=== PATIENT | female | born 1965 | race Caucasian/White ===

== ENCOUNTER → 2016-09-05 | Day surgery (SDC) | payer BC ==
[2016-08-27 11:45] VITALS: BMI 35.0
[~2016-09-05] VITALS: Ht 167.6 cm; Wt 97.7 kg
[~2016-09-05] MED LIST: DOXY50CA26 PO; LEVOIUD; SODIUM CHLORIDE 0.9% 500ML 500 ML IV ONE; TRIATAB3 PO; VOLTAREN PO; [UNRECOGNIZED DRUG - OTHER] PO; [UNRECOGNIZED DRUG - REMARK] PO
[2016-09-05 12:47] VITALS: Ht 167.6 cm; Wt 97.7 kg
--- NOTE | 2016-09-05 13:34 | Endo History and Physical ---
History & Physical Date of Service: Sep 05, 2016. Chief Complaint: SCREENING Referring Physician: DR Dakotah WHITE History of Present Illness 50 yo CF who presents for screening colonoscopy. Past Surgical History Hx Cardiac Surgery: No Hx Internal Defibrillator: No Hx Pacemaker: No Hx Abdominal Surgery: No Hx of Implantable Prosthesis: No Hx Post-Op Nausea and Vomiting: No Hx Cancer Surgery: No Hx Thoracic Surgery: No Hx Orthopedic: No Hx Urinary Tract Surgery: No Family History None Social History Smoking Status: Never Smoker Hx Substance Use: No Hx Alcohol Use: Yes (OCCASIONAL) Allergies Coded Allergies: Adhesives (Verified Allergy, Unknown, REDNESS, 09/05/16) NO KNOWN DRUG ALLERGIES (Verified Allergy, Unknown, ., 08/27/16) Current Medications Reported Home Medications Medications Dose Route/Sig Max Daily Dose Days Date Category Mirena (Levonorgestrel (Iud)) 20 Mcg/24 Hr Iud 1 CONTINOUS 08/27/16 Reported [Inflammation Supp] 1 Tab PO TID 08/27/16 Reported [Ac-Carbomide] 1 Tab PO TID 08/27/16 Reported Doxycycline (Doxycycline (Monohydrate)) 50 Mg Cap 1 Tab PO QAM 08/27/16 Reported [Voltaren] Unknown Strength Unknown Dose PO BID 08/27/16 Reported Triamterene/Hctz 37.5-25MG (Triamterene/HCTZ) 1 Tab Tab 1 Tab PO QAM 08/27/16 Reported Vital Signs Weight (Kilograms): 97.73 Height (Feet): 5 Height (Inches): 6 Date Time Temp Pulse Resp B/P Pulse Ox O2 Delivery O2 Flow Rate FiO2 09/05/16 12:57 36.7 85 16 157/89 98 Room Air Physical Exam General Appearance: WD/WN, no apparent distress Respiratory/Chest: Auscultation: breath sounds normal Cardiovascular: Heart Auscultation: RRR Abdomen: Bowel Sounds: normal Inspection & Palpation: soft, non-distended, no tenderness, guarding & rebound Assessment and Plan Assessment: 50 yo CF who presents for screening colonoscopy. Plan: Proceed with colonoscopy.
--- NOTE | 2016-09-05 14:01 | GI REPORT ---
Procedure Date: 09/05/2016 1:35 PM Procedure: Colonoscopy Indications: Screening for colorectal malignant neoplasm Medicines: Monitored Anesthesia Care Complications: No immediate complications. Estimated Blood Loss: Estimated blood loss: none. Procedure: Pre-Anesthesia Assessment: - Prior to the procedure, a History and Physical was performed, and patient medications and allergies were reviewed. The patient's tolerance of previous anesthesia was also reviewed. The risks and benefits of the procedure and the sedation options and risks were discussed with the patient. All questions were answered, and informed consent was obtained. Prior Anticoagulants: The patient has taken no previous anticoagulant or antiplatelet agents. ASA Grade Assessment: II - A patient with mild systemic disease. After reviewing the risks and benefits, the patient was deemed in satisfactory condition to undergo the procedure. After I obtained informed consent, the scope was passed under direct vision. Throughout the procedure, the patient's blood pressure, pulse, and oxygen saturations were monitored continuously. The Scope was introduced through the anus and advanced to the terminal ileum. The colonoscopy was performed without difficulty. The patient tolerated the procedure well. The quality of the bowel preparation was good. The terminal ileum, ileocecal valve, appendiceal orifice, and rectum were photographed. Findings: Non-bleeding internal hemorrhoids were found during retroflexion. The hemorrhoids were small. The exam was otherwise without abnormality. Impression: - Non-bleeding internal hemorrhoids. - The examination was otherwise normal. - No specimens collected. Recommendation: - Resume previous diet. - Continue present medications. - Repeat colonoscopy in 10 years for surveillance. - Return to primary care physician as previously scheduled. Sam Marte DO 09/05/2016 2:01:03 PM This report has been signed electronically. Note Initiated On: 09/05/2016 1:35 PM
--- NOTE | 2016-09-05 14:03 | Discharge Instructions ---
Endoscopy Patient Instructions Date / Procedure(s) Performed Sep 05, 2016. Colonoscopy Allergy Information Coded Allergies: Adhesives (Verified Allergy, Unknown, REDNESS, 09/05/16) NO KNOWN DRUG ALLERGIES (Verified Allergy, Unknown, ., 08/27/16) Discharge Date / Findings Sep 05, 2016. Internal hemorrhoids Medication Instructions OK to resume all medications today as prescribed. Reported Home Medications Medications Dose Route/Sig Max Daily Dose Days Date Category Mirena (Levonorgestrel (Iud)) 20 Mcg/24 Hr Iud 1 CONTINOUS 08/27/16 Reported [Inflammation Supp] 1 Tab PO TID 08/27/16 Reported [Ac-Carbomide] 1 Tab PO TID 08/27/16 Reported Doxycycline (Doxycycline (Monohydrate)) 50 Mg Cap 1 Tab PO QAM 08/27/16 Reported [Voltaren] Unknown Strength Unknown Dose PO BID 08/27/16 Reported Triamterene/Hctz 37.5-25MG (Triamterene/HCTZ) 1 Tab Tab 1 Tab PO QAM 08/27/16 Reported Provider Instructions Activity Restrictions - No exercising or heavy lifting for 24 hours. - Do not drink alcohol the day of the procedure. - Do not drive a car or operate machinery until the day after the procedure. - Do not make any important decisions or sign important papers in 24 hours after the procedure. Following Day: - Return to full activity which may include returning to work/school. Diet Start your diet with liquids and light foods (jello, soup, juice, toast). Then eat your usual diet if not nauseated. Treatment For Common After Affects For mild abdominal pain, bloating, or excessive gas: - Rest - Eat lightly - Lie on right side Follow-Up Information Follow-up with DR Dakotah WHITE as scheduled Anesthesia Information What You Should Know You have had a procedure that required some medicine to reduce anxiety and discomfort. This treatment is called moderate sedation. After receiving the treatment, you may be sleepy, but you will be able to breathe on your own. The effects of the treatment may last for several hours. Follow these instructions along with Activity/Diet recommendations noted above: * Do NOT do anything where dizziness or clumsiness would be dangerous. * Rest quietly at home today, then you can be up and about tomorrow. * Have a responsible person stay with you the rest of today. * You may have had an I.V. today. If so, you may take the dressing off later today. Recommendations Call your doctor if: * Trouble breathing * Continuous vomiting for more than 24 hours * Temperature above 101 degrees * Severe abdominal pain or bloating * Pain not relieved by pain medicine ordered * There is increased drainage or redness from any incision * A large amount of rectal bleeding greater than 2-3 tablespoons. (If you had a polyp/s removed or have hemorrhoids, a small amount of blood - from the rectum is to be expected.) * You have any unanswered questions or concerns. IN THE EVENT OF A SERIOUS EMERGENCY, GO TO THE NEAREST EMERGENCY ROOM Your discharge instructions were prepared by provider Sam Marte. Patient Instructions Signature Page Sharita Saleem Patient (or Guardian) Signature/Date: I have read and understand the instructions given to me by my caregivers. Caregiver/RN/Doctor Signature/Date: The above-named patient and/or guardian has received patient instructions on this date. + Original Patient Signature Page (only) stays with chart. Please make copy for patient.
--- NOTE | 2016-09-05 14:18 | Anesthesiology Progress Note ---
Anesthesia Post Op Note Date & Time Sep 05, 2016 at 14:19 Vital Signs Pain Intensity: 0 Vital Signs Past 12 Hours Date Time Temp Pulse Resp B/P Pulse Ox O2 Delivery O2 Flow Rate FiO2 09/05/16 14:03 71 18 119/71 100 Room Air 09/05/16 12:57 36.7 85 16 157/89 98 Room Air Notes Mental Status: alert / awake / arousable, participated in evaluation Pt Amnestic to Procedure: Yes Nausea / Vomiting: adequately controlled Pain: adequately controlled Airway Patency, RR, SpO2: stable & adequate BP & HR: stable & adequate Hydration State: stable & adequate Anesthetic Complications: no major complications apparent
[2016-09-05 14:33] VITALS: BP 116/77; PULSE 67; O2SAT 100
== END | disposition home or self-care (01) ==
LOC: C.GI 12:29
PROVIDERS: ATTEND Internal Medicine
DX: Z12.11 Encounter for screening for malignant neoplasm of colon (principal); K64.8 Other hemorrhoids; N91.2 Amenorrhea, unspecified; D68.9 Coagulation defect, unspecified; F32.9 Major depressive disorder, single episode, unspecified; B00.9 Herpesviral infection, unspecified; L29.8 Other pruritus

== ENCOUNTER → 2017-01-25 | Outpatient (CLI) | payer BC ==
[~2017-01-25] MED LIST changes: -SODIUM CHLORIDE 0.9% 500ML 500 ML IV ONE
--- NOTE | 2017-01-25 12:52 | DIAGNOSTIC IMAGING REPORT ---
C-SPINE ROUTINE 4 OR 5 VIEWS CLINICAL HISTORY: Neck pain COMPARISON STUDY: No previous studies for comparison. FINDINGS: No acute fractures or traumatic subluxations are visualized. 2 mm of anterolisthesis of C5 on C6 is felt to be arthritic. There are degenerative changes present most pronounced at the C5-6 and C6-7 levels. IMPRESSION: Mild degenerative changes most pronounced C5-6 and C6-7 levels. No acute fractures or traumatic subluxations are visualized. Electronically signed by: Floyd Faulkner M.D. 01/25/2017 12:51 PM Dictated Date/Time: 01/25/2017 12:50 PM
== END ==
LOC: C.RADBC 12:32
PROVIDERS: ATTEND Internal Medicine
DX: M50.322 Other cervical disc degeneration at C5-C6 level (principal); M50.323 Other cervical disc degeneration at C6-C7 level

== ENCOUNTER → 2017-04-01 | Outpatient (CLI) | payer BC ==
--- NOTE | 2017-04-02 13:22 | MAMMOGRAPHY REPORT ---
BILATERAL DIGITAL SCREENING MAMMOGRAM 3D/2D WITH CAD: 04/01/2017 CLINICAL HISTORY: Routine screening. Patient has no complaints. TECHNIQUE: Breast tomosynthesis in addition to standard 2D mammography was performed. Current study was also evaluated with a Computer Aided Detection (CAD) system. COMPARISON: Comparison is made to exams dated: 03/26/2016 mammogram, 03/23/2015 mammogram, 03/16/2014 m ammogram, 02/17/2013 mammogram, 02/12/2012 mammogram, and 02/07/2011 mammogram - [facility]ter. BREAST COMPOSITION: The tissue of both breasts is heterogeneously dense, which may obscure small mas ses. FINDINGS: A 7 mm circumscribed mass with associated coarse calcification in the lateral right breast has been stable based on prior mammograms dating back to at least 08/26/2009, therefore likely benign . No new suspicious mass, architectural distortion or cluster of microcalcifications is seen. ACR BI-RADS CATEGORY 1: NEGATIVE There is no mammographic evidence of malignancy. A 1 year screening mammogram is recommended. The pa tient will receive written notification of the results. Approximately 10% of breast cancers are not detected with mammography. A negative mammographic report should not delay biopsy if a clinically suggestive mass is present. Khushbu Oneil M.D. ay/:04/01/2017 16:38:47 Bee Keeper: Mary KHAN(Singh)(Mickie), [facility] letter sent: Normal 1/2 BI-RADS Code: ACR BI-RADS Category 1: Negative
== END | disposition home or self-care (01) ==
LOC: C.MAMM 13:11
PROVIDERS: ATTEND Internal Medicine
DX: Z12.31 Encounter for screening mammogram for malignant neoplasm of breast (principal)

== ENCOUNTER → 2017-11-13 | Outpatient (CLI) | payer OTHER ==
[~2017-11-13] MED LIST changes: +LEVO1IUD2; -LEVOIUD; +ONDA4TAB10 SL; +OXYC1TAB3 PO
== END | disposition home or self-care (01) ==
LOC: C.LAB1850 09:44
PROVIDERS: ATTEND Internal Medicine
DX: R31.0 Gross hematuria (principal); R82.99 Other abnormal findings in urine

== ENCOUNTER 2017-11-14 00:17 | Emergency (ER) | payer OTHER ==
[~2017-11-14] VITALS: Ht 167.6 cm; Wt 93.3 kg
[~2017-11-14 00:17] MED LIST changes: -ONDA4TAB10 SL; -OXYC1TAB3 PO
[2017-11-14 00:20] VITALS: TEMP 36.4; Ht 167.6 cm; Wt 93.3 kg
[2017-11-14] MEDS ORDERED: SODIUM CHLORIDE 0.9% 1000ML 1,000 ML IV STA (00:28)
[2017-11-14] MEDS ORDERED: KETOROLAC TROMETHAMINE 30 MG/ML VIAL IV STA (00:28)
[2017-11-14] MEDS ORDERED: MoRPHine SULFATE 4 MG/ML 1 ML CARP\\VIAL IV STA ×2 (00:28→01:59)
[2017-11-14] MEDS ORDERED: ONDANSETRON INJ 2 MG/ML 2 ML VIAL IV STA ×2 (00:28→04:55)
[2017-11-14 00:44] VITALS: O2SAT 96
[2017-11-14 01:34] LABS: BASO % 0.3 %; BASO ABS # 0.02 K/uL (0-0.2); EOS % 1.2 %; EOS ABS # 0.07 K/uL (0-0.5); HEMATOCRIT 40.1 % (37-47); HEMOGLOBIN 13.2 g/dL (12.0-16.0); IG# 0.01 K/uL (0.00-0.02); LYMPH % 17.2 %; MEAN CELL VOLUME 89.7 fL (80-100); MEAN CORPUSCULAR HEMOGLOBIN 29.5 pg (25-34); MEAN CORPUSCULAR HGB CONC 32.9 g/dl (32-36); MEAN PLATELET VOLUME 9.9 fL (7.4-10.4); MONO % 5.8 %; MONO ABS # 0.34 K/uL (0.11-0.59); NEUT % 75.3 %; NEUT ABS # 4.38 K/uL (1.4-6.5); PLATELET COUNT 190 K/uL (130-400); RED CELL DISTRIBUTION WIDTH CV 12.9 % (11.5-14.5); RED CELL DISTRIBUTION WIDTH SD 42.3 fL (36.4-46.3); WHITE BLOOD COUNT 5.82 K/uL (4.8-10.8)
[2017-11-14 01:49] LABS: ALBUMIN 3.2 gm/dl (3.4-5.0); ALT/SGPT 16 U/L (12-78); AST/SGOT 13 U/L (15-37); BLOOD UREA NITROGEN 10 mg/dl (7-18); CALCIUM 8.1 mg/dl (8.5-10.1); CARBON DIOXIDE 27 mmol/L (21-32); CREATININE 0.94 mg/dl (0.60-1.20); GLUCOSE 124 mg/dl (70-99); LIPASE 94 U/L (73-393); POTASSIUM 3.8 mmol/L (3.5-5.1); SODIUM 141 mmol/L (136-145)
[2017-11-14 01:52] LABS: ALKALINE PHOSPHATASE 31 U/L (45-117)
[2017-11-14] MEDS ORDERED: ONDANSETRON HOME PACK 4MG OD TAB PO ONE (05:00)
[2017-11-14] MEDS ORDERED: OXYCODONE IR HOME PACK PO ONE (05:00)
--- NOTE | 2017-11-14 05:01 | EMERGENCY ROOM VISIT NOTE ---
History First contact with patient: 00:23 Chief Complaint: KIDNEY STONE Stated Complaint: KIDNEY STONE History of Present Illness The patient is a 51 year old female who presents to the Emergency Room with complaints of severe sudden onset of right flank pain described as severe, 10 out of 10. Patient had a urine dip this morning show blood in it. No known history of kidney stones. Patient denies chest pain, dyspnea, fever, chills, saddle anesthesia, loss of bowel or bladder control, abdominal pain, urinary frequency or dysuria. No vaginal itching or discharge. Patient denies chance of . Review of Systems An 10 system review of systems was completed with positives and pertinent negatives listed in the HPI. Past Medical/Surgical History Medical Problems: (1) Hyperlipidemia Nec/Nos (2) Lump Or Mass In Breast (3) Oth Pulmon Embolism/Infarct Family History FH: cancer FH: heart disease FH: hypertension Social History Smoking Status: Never Smoker Alcohol Use: occasionally Drug Use: none Marital Status: Housing Status: lives with family Occupation Status: employed Current/Historical Medications Scheduled Levonorgestrel (Iud) (Mirena), 1 DOSE CONTINOUS Physical Exam Vital Signs Date Time Temp Pulse Resp B/P (MAP) Pulse Ox O2 Delivery O2 Flow Rate FiO2 11/14/17 04:04 76 16 136/87 96 Room Air 11/14/17 04:02 71 11/14/17 02:04 88 18 142/91 96 Room Air 11/14/17 01:19 73 18 118/84 100 Room Air 11/14/17 00:44 73 11/14/17 00:44 96 Room Air 11/14/17 00:20 36.4 100 16 135/84 96 Room Air Physical Exam VITALS: Vitals are noted on the nurse's note and reviewed by myself. Vital signs stable. GENERAL: White female yelling and screaming in pain, nondiaphoretic, well- developed well-nourished. SKIN: Capillary reflex less than 2 seconds. HEENT: Normocephalic. PERRLA. EOMI. Nares patent. Mucous membranes moist. Neck is supple without nuchal rigidity. HEART: Regular rate and rhythm without murmurs gallops or rubs. LUNGS: Clear to auscultation bilaterally without wheezes, rales or rhonchi. No retractions or accessory muscle use. ABDOMEN: Positive bowel sounds x 4. Normal tympanic percussion. Soft, nontender, without masses or organomegaly. Lopez sign negative. No guarding or rebound tenderness. Right CVA tenderness MUSCULOSKELETAL: No gross musculoskeletal defects. No pedal edema. No calf tenderness. NEURO: Patient was alert and oriented to person place and time. Normal sensation to light and sharp touch. No focal neurological deficits. Medical Decision & Procedures Laboratory Results 11/14/17 01:17 Red Blood Count 4.47, Mean Corpuscular Volume 89.7, Mean Corpuscular Hemoglobin 29.5, Mean Corpuscular Hemoglobin Concent 32.9, Mean Platelet Volume 9.9, Neutrophils (%) (Auto) 75.3, Lymphocytes (%) (Auto) 17.2, Monocytes (%) (Auto) 5.8, Eosinophils (%) (Auto) 1.2, Basophils (%) (Auto) 0.3, Neutrophils # (Auto) 4.38, Lymphocytes # (Auto) 1.00, Monocytes # (Auto) 0.34, Eosinophils # (Auto) 0.07, Basophils # (Auto) 0.02 11/14/17 01:17 Test 11/14/17 01:17 11/14/17 01:50 White Blood Count 5.82 K/uL (4.8-10.8) Red Blood Count 4.47 M/uL (4.2-5.4) Hemoglobin 13.2 g/dL (12.0-16.0) Hematocrit 40.1 % (37-47) Mean Corpuscular Volume 89.7 fL (80-100) Mean Corpuscular Hemoglobin 29.5 pg (25-34) Mean Corpuscular Hemoglobin Concent 32.9 g/dl (32-36) Platelet Count 190 K/uL (130-400) Mean Platelet Volume 9.9 fL (7.4-10.4) Neutrophils (%) (Auto) 75.3 % Lymphocytes (%) (Auto) 17.2 % Monocytes (%) (Auto) 5.8 % Eosinophils (%) (Auto) 1.2 % Basophils (%) (Auto) 0.3 % Neutrophils # (Auto) 4.38 K/uL (1.4-6.5) Lymphocytes # (Auto) 1.00 K/uL (1.2-3.4) Monocytes # (Auto) 0.34 K/uL (0.11-0.59) Eosinophils # (Auto) 0.07 K/uL (0-0.5) Basophils # (Auto) 0.02 K/uL (0-0.2) RDW Standard Deviation 42.3 fL (36.4-46.3) RDW Coefficient of Variation 12.9 % (11.5-14.5) Immature Granulocyte % (Auto) 0.2 % Immature Granulocyte # (Auto) 0.01 K/uL (0.00-0.02) Anion Gap 5.0 mmol/L (3-11) Est Creatinine Clear Calc Drug Dose 80.5 ml/min Estimated GFR () 80.8 Estimated GFR (Non- 69.8 BUN/Creatinine Ratio 11.0 (10-20) Calcium Level 8.1 mg/dl (8.5-10.1) Total Bilirubin 0.2 mg/dl (0.2-1) Direct Bilirubin < 0.1 mg/dl (0-0.2) Aspartate Amino Transf (AST/SGOT) 13 U/L (15-37) Alanine Aminotransferase (ALT/SGPT) 16 U/L (12-78) Alkaline Phosphatase 31 U/L (45-117) Total Protein 6.0 gm/dl (6.4-8.2) Albumin 3.2 gm/dl (3.4-5.0) Lipase 94 U/L (73-393) Urine Color YELLOW Urine Appearance CLOUDY (CLEAR) Urine pH 7.0 (4.5-7.5) Urine Specific [place] 1.019 (1.000-1.030) Urine Protein NEG (NEG) Urine Glucose (UA) NEG (NEG) Urine Ketones NEG (NEG) Urine Occult Blood 3+ (NEG) Urine Nitrite NEG (NEG) Urine Bilirubin NEG (NEG) Urine Urobilinogen NEG (NEG) Urine Leukocyte Esterase TRACE (NEG) Urine WBC (Auto) 1-5 /hpf (0-5) Urine RBC (Auto) >30 /hpf (0-4) Urine Hyaline Casts (Auto) 1-5 /lpf (0-5) Urine Epithelial Cells (Auto) 20-30 /lpf (0-5) Urine Bacteria (Auto) NEG (NEG) Urine Crystals CALCIUM OXALATE (NONE Medications Administered Medications (Trade) Dose Ordered Sig/Jailene Route Start Time Stop Time Status Last Admin Dose Admin Sodium Chloride 1,000 ml @ 999 mls/hr Q1H1M STAT IV 11/14/17 00:28 11/14/17 01:28 DC 11/14/17 00:28 999 MLS/HR Ketorolac Tromethamine (Toradol Inj) 15 mg NOW STAT IV 11/14/17 00:28 11/14/17 00:30 DC 11/14/17 00:28 15 MG Morphine Sulfate (MoRPHine SULFATE INJ) 4 mg NOW STAT IV 11/14/17 00:28 11/14/17 00:30 DC 11/14/17 00:28 4 MG Ondansetron HCl (Zofran Inj) 4 mg NOW STAT IV 11/14/17 00:28 11/14/17 00:30 DC 11/14/17 00:28 4 MG Morphine Sulfate (MoRPHine SULFATE INJ) 4 mg NOW STAT IV 11/14/17 01:59 11/14/17 02:01 DC 11/14/17 02:03 4 MG ED Course Prior records/ancillary studies reviewed. Triage Nursing notes reviewed. Additional history obtained from the family. The patient's history was concerning for right flank pain. Differential diagnosis: Etiologies such as renal colic, appendicitis, diverticulitis, mesenteric ischemia, aortic pathology, infections, inflammatory bowel disease, PUD, biliary pathology, UTI, as well as others were entertained. Physical examination findings: As above. ER treatment provided: Toradol, morphine, Zofran, IV fluids On reassessment the patient felt better. Diagnostic interpretation by me: The labs revealed stable H&H. Urinalysis revealed hematuria without signs of infection. There was no sign of UTI. Imaging studies: CT of the abdomen and pelvis was read by stat radiology and concerning for right UVJ stone with mild hydro-. Consultation: A consultation was placed with Dr. Friedman, hospitalist. The case was discussed and diagnostics were reviewed. The patient was evaluated in the ER for further treatment. It appears that the patient has isolated renal colic from a right sided stone. Patient initially had severe amount of pain despite 3 rounds of pain meds. She was evaluated by medicine and then started to feel better and requested to leave. Medicine agreed. Patient was advised to take medications as directed, rest, stay well-hydrated, strain her urine and follow-up with urology and family care in a few days or here in the ER sooner for severe pain, fevers, vomiting, worsening signs or symptoms or as needed. By the evaluation outlined above emergent etiologies such as appendicitis, diverticulitis, mesenteric ischemia, aortic pathology, infections, inflammatory bowel disease, PUD, biliary pathology, UTI, as well as others were deemed relatively unlikely. The pt informed about the findings as listed above. All questions were answered and pleased with the treatment. Return instructions were outlined and the patient was discharged in stable condition. Outpatient prescription management: Oxy IR 5mg 1-2 po Q4 hrs prn Zofran Referral: The pt was referred to [facility] for follow up care regarding their stone. or The patient was referred back to their primary care physician for follow-up in 2 to 3 days for a recheck of the current condition. Case reviewed with my attending The chart was completed utilizing [employer] Speech voice recognition software. Grammatical errors, random word insertions, pronoun errors, and incomplete sentences are an occassional consequence of this system due to software limitations, ambient noise, and hardware issues. Any formal questions or concerns about the content, text, or information contained within the body of this dictation should be directly addressed to the physician assistant director for clarification. Medical Decision As above [place] Drug Monitoring Program Search Results: patient reviewed within database, no issues identified Medication Reconcilliation Current Medication List: was personally reviewed by me Blood Pressure Screening Patient's blood pressure: Normal blood pressure Impression Primary Impression: Renal colic on right side Departure Information Dispostion Home / Self-Care Condition GOOD Referrals Vahid Hanley M.D. (PCP) Patient Instructions [facility] Additional Instructions DO NOT drive, drink alcohol, operate machinery, or perform dangerous activities today. You were given medications in the ER that can affect your ability to safely function or operate a vehicle. Oxycodone Immediate Release (OxyIR) 5mg: Take 1-2 pills every four hours for pain. Avoid alcohol, operating machinery or dangerous equipment, working on ladders or roofs, DRIVING, or situations where being under the influence may be dangerous. It is recommended to use an [id number] stool softener such as Colace, 100mg twice daily while taking this medication to avoid constipation. Zofran 4 mg: Take one every six hours as needed for nausea. Avoid alcohol, operating machinery or dangerous equipment, working on ladders or roofs, DRIVING , or situations where being under the influence may be dangerous. Ibuprofen(Motrin, Advil) may be used for fever or pain. Use 600mg every six hours as needed. Take with food. Avoid using more than 2400mg in a 24 hour period. Do not use 2400mg per day for more than three consecutive days without physician direction. Prolonged inappropriate use can lead to stomach upset or ulcers. This medication can be taken if you need to drive, work, or perform activities which may be dangerous when taking narcotic pain medication. (AND/OR) Acetaminophen(Tylenol) may be used for fever or pain. Use 1000mg every six hours as needed. Avoid using more than 3000mg in a 24 hour period. This medication can be taken if you need to drive, work, or perform activities which may be dangerous when taking narcotic pain medication. Strain your urine and collect all the stones or debris for the urologists. Rest and avoid strenuous activity until your stone passes and symptoms resolve. Drink plenty of fluids. Continue current medications. Return to the ER for worsening abdominal or back pain, vomiting, fevers, passing out, or as needed. Follow up with urology in 2-3 days, call for an appointment.
[2017-11-14] MEDS ORDERED: OXYC1TAB3 PO (05:02)
[2017-11-14] MEDS ORDERED: ONDA4TAB10 SL (05:02)
[2017-11-14 05:13] VITALS: BP 134/84; PULSE 74; O2SAT 98
--- NOTE | 2017-11-14 07:30 | DIAGNOSTIC IMAGING REPORT ---
CT SCAN OF THE ABDOMEN AND PELVIS WITHOUT IV CONTRAST CLINICAL HISTORY: Right flank pain. COMPARISON STUDY: Abdominal CT dated 03/26/2010. TECHNIQUE: CT scan of the abdomen and pelvis is performed from the lung bases to the proximal femora. Images are reviewed in the axial, sagittal, and coronal planes. IV contrast was not administered for this examination as per the referring clinician. A dose lowering technique was utilized adhering to the principles of ALARA. CT DOSE: 1448.07 mGy.cm FINDINGS: Lung bases: The heart is normal in size and without pericardial effusion. The lung bases are clear noting dependent atelectasis. Liver: The unenhanced liver is normal in size, contour, and attenuation. There is no intrahepatic biliary ductal dilatation. 2 subcentimeter hypodensities in the left lobe likely represent cysts but are too small for definitive characterization. Gallbladder: Unremarkable. Spleen: Normal in size and attenuation. Pancreas: Unremarkable. Adrenal glands: Unremarkable. Kidneys: The unenhanced kidneys are normal in size. There is a 5 mm obstructing calculus just below the right ureteropelvic junction at the level of L2 seen on image #168. This causes mild to moderate right-sided hydronephrosis. There is associated right-sided perinephric stranding and trace fluid. There is an additional punctate nonobstructing right renal calculus. There are least 2 punctate nonobstructing left renal calculi. No left-sided hydronephrosis is seen. There is no evidence of contour deforming renal mass lesion. Abdominal vasculature: The abdominal aorta is normal in course and caliber. Bowel: The small bowel and colon are normal in course and caliber. The appendix is well-visualized and normal. Peritoneum: There is no intraperitoneal free air or abdominal ascites. There is a small fat-containing umbilical hernia. Lymphadenopathy: None. Pelvic viscera: The bladder, uterus, and adnexa are normal as visualized noting an intrauterine device in place. Small ovarian follicles are noted. Skeletal structures: There is advanced degenerative disc space narrowing with endplate sclerosis seen at L5-S1. Mild sclerotic change is noted in the sacroiliac joints. Scattered bone islands are present in the pelvis and proximal femora. No lytic or blastic lesions are seen. IMPRESSION: 1. There is a 5 mm obstructing calculus in the right ureter just below the ureteropelvic junction. This causes mild to moderate right hydronephrosis. 2. Additional punctate nonobstructing calculi are seen bilaterally. Electronically signed by: Mark Garcia M.D. 11/14/2017 7:28 AM Dictated Date/Time: 11/14/2017 7:05 AM
== END 2017-11-14 05:14 | disposition home or self-care (01) ==
LOC: C.EDB 00:18
DX: N23 Unspecified renal colic (principal); E78.5 Hyperlipidemia, unspecified; Z82.49 Family history of ischemic heart disease and other diseases of the circulatory system

== ENCOUNTER → 2017-11-22 | Outpatient (CLI) | payer OTHER ==
[~2017-11-22] MED LIST changes: -DOXY50CA26 PO; +ONDA4TAB10 SL; +ONDA4TAB46 PO; +OXYC1TAB3 PO; +TAMS0.4C38 PO; -TRIATAB3 PO; -VOLTAREN PO; -[UNRECOGNIZED DRUG - OTHER] PO; -[UNRECOGNIZED DRUG - REMARK] PO
--- NOTE | 2017-11-22 14:01 | DIAGNOSTIC IMAGING REPORT ---
CHEST 2 VIEWS ROUTINE HISTORY: Nephrolithiasis. COMPARISON: Chest CTA 03/28/2010. FINDINGS: The lungs are clear. Cardiac silhouette is normal in size. No pleural effusions. No pneumothorax. IMPRESSION: No acute process. Electronically signed by: Daryl Wright M.D. 11/22/2017 1:59 PM Dictated Date/Time: 11/22/2017 1:58 PM
--- NOTE | 2017-11-22 14:04 | DIAGNOSTIC IMAGING REPORT ---
KUB CLINICAL HISTORY: 51 years-old Female presenting with N20.0 [id number]. TECHNIQUE: Single supine view of the abdomen was obtained. COMPARISON: CT from 11/14/2017. FINDINGS: Moderate stool burden in the right colon. No bowel obstruction. No gross pneumoperitoneum allowing for supine technique. A punctate renal calculus is noted at the lower pole of the left kidney. Previously noted punctate right renal calculi are not apparent on this radiograph likely due to obscuring stool. However, linear calcification along the course of the proximal right ureter may correspond to the previously noted calculus on recent CT. This is located at the level of the right transverse process of L2. An intrauterine device is in place in the pelvis. Multiple bone islands noted including one in the right iliac wing. Lung bases clear. IMPRESSION: 1. Suspected right ureteral calculus at the level of L2. 2. Punctate left renal calculus. Punctate right renal calculi not radiographically visible. Electronically signed by: Vahid Lim M.D. 11/22/2017 2:03 PM Dictated Date/Time: 11/22/2017 1:58 PM
== END ==
LOC: C.RAD1850 13:43
PROVIDERS: ATTEND Urology
DX: N20.0 Calculus of kidney (principal); N13.30 Unspecified hydronephrosis

== ENCOUNTER → 2017-11-29 | Outpatient (CLI) | payer OTHER ==
[~2017-11-29] MED LIST changes: -ONDA4TAB10 SL
--- NOTE | 2017-11-29 10:46 | DIAGNOSTIC IMAGING REPORT ---
KUB HISTORY: N13.30 [id number] [id number] COMPARISON: KUB 11/22/2017. FINDINGS: The bowel gas pattern is unremarkable. There are no dilated loops of small bowel to suggest an obstruction. Punctate calcification of the left deep pelvis remain stable. There is a stable bone island within the right iliac wing medially. The right renal shadow is partially obscured by overlying bowel gas. No definite right renal calculi identified. Small linear calcification adjacent to the right L2 transverse process. This has passed approximately 1 cm distal to the prior study. Punctate stone within the lower pole of the left kidney, unchanged. No pneumoperitoneum or pneumatosis. IMPRESSION: 1. There is again noted a small stone within the expected location of the proximal right ureter adjacent to the right L2 transverse process. This has passed approximately 1 cm distal compared to the prior study. 2. Stable left nephrolithiasis. Electronically signed by: Daryl Wright M.D. 11/29/2017 10:45 AM Dictated Date/Time: 11/29/2017 10:43 AM
== END | disposition home or self-care (01) ==
LOC: C.RAD1850 10:29
PROVIDERS: ATTEND Urology
DX: N20.0 Calculus of kidney (principal)

== ENCOUNTER → 2017-11-29 | Day surgery (SDC) | payer OTHER ==
[2017-11-26 07:37] VITALS: Ht 167.6 cm; Wt 97.7 kg
[~2017-11-29] VITALS: Ht 167.6 cm; Wt 97.7 kg
[~2017-11-29] MED LIST changes: +ATROPINE SULFATE 0.1 MG/ML 5ML SYR IV PRN; +CIPROFLOXACIN / D5W 400 MG IV SCH; +DEXAMETHASONE SOD INJ 4 MG/ML VIAL ONE; +EpHEDrine SULFATE INJ 50 MG/ML AMP IV PRN; +FENTANYL CITRATE INJ 50 MCG/1 ML 2 ML VIAL IV PRN; +FENTANYL CITRATE INJ 50 MCG/1 ML 2 ML VIAL ONE; +KETOROLAC TROMETHAMINE 30 MG/ML VIAL ONE; +LACTATED RINGER'S 1000ML 1,000 ML IV SCH; +LIDOCAINE HCL 2% 2 ML VIAL (20MG/ML) ONE; +MIDAZOLAM HCL 1 MG/ML 2ML VIAL ONE; +ONDANSETRON INJ 2 MG/ML 2 ML VIAL IV PRN; +ONDANSETRON INJ 2 MG/ML 2 ML VIAL ONE; +OXYCODONE/ACETAMINOPHEN 5-325 TAB PO PRN; +PROMETHAZINE HCL INJ 6.25 MG in SODIUM CHLORIDE 0.9% 50ML 50 ML IV PRN; +PROPOFOL IV EMULSION 10 MG/ML 20 ML VIAL IV ONE
--- NOTE | 2017-11-29 11:42 | History & Physical Bridge Note ---
H&P Re-Evaluation Bridge Note: I have examined the patient, reviewed the History & Physical and in the interval since the performance of the History & Physical I have noted the following changes of clinical significance: No changes noted
--- NOTE | 2017-11-29 11:48 | Discharge Instructions ---
Discharge Instructions Date of Service Nov 29, 2017. Admission Reason for Admission: Stones Discharge Discharge Diagnosis / Problem: R Stone Discharge Goals Goal(s): Decrease discomfort, Improve function Activity Recommendations Activity Limitations: resume your previous activity Lifting Limitations: gradually increase as tolerated Exercise/Sports Limitations: gradually increase as tolerated . Instructions / Follow-Up Instructions / Follow-Up May have blood in urine. May have pelvic pain. may have discomfort in flank or side. Call if any fevers. Current Hospital Diet Patient's current hospital diet: Discharge Diet Recommended Diet: Regular Diet Procedures Procedures Performed: R ESWL Pending Studies Studies pending at discharge: no Medical Emergencies . Who to Call and When: Medical Emergencies: If at any time you feel your situation is an emergency, please call 911 immediately. . Non-Emergent Contact Non-Emergency issues call your: Primary Care Provider, Urologist Call Non-Emergent contact if: you have a fever, temperature is above 101, temperature is above 101.5, your pain is not controlled, your pain is worsening , your pain is unusual for you . . "Provider Documentation" section prepared by Julius Meyer. .
--- NOTE | 2017-11-29 14:05 | [facility] Operative Report ---
Operative Report Operative Date Nov 29, 2017. Pre-Operative Diagnosis Right Ureteral Stone Post-Operative Diagnosis Same Procedure(s) Performed R ESWL Surgeon Mitch Estimated Blood Loss None Findings Right ureteral stone. Drains None Anesthesia Type General Complication(s) none Disposition Recovery Room / PACU Indications Right ureteral stone with bother. Risks and benefits discussed. Description of Procedure Patient was consented and brought back to the operating room. Patient was placed under anesthesia in the supine position. Patient was prepped and draped in the regular sterile fashion. A time out was completed. With the time out completed, The patient was assessed with fluoroscopy. The stone was identified and position was triangulated. At this point, the shock waves commenced. The stone was monitored throughout the process with fluoroscopy to assess progression and maintain position. The stone was pulverized with 2500 shocks at a maximum voltage of 5 with a total fluoroscopic time of 2:53. With the stone treated, the procedure ended. The patient was cleaned, aroused from anesthesia, and transferred to the pacu in stable condition having tolerated the procedure well with no complications. I was present and participated in all aspects of the procedure. The patient will be monitored in the PACU until transferred. I attest to the content of the Intraoperative Record and any orders documented therein. Any exceptions are noted below.
--- NOTE | 2017-11-29 14:52 | Anesthesia Progress Nt - [facility] ---
Anesthesia Post Op Note Date & Time Nov 29, 2017 at 14:52 Vital Signs Pain Intensity: 0 Vital Signs Past 12 Hours Date Time Temp Pulse Resp B/P (MAP) Pulse Ox O2 Delivery O2 Flow Rate FiO2 11/29/17 14:36 36.7 60 18 129/81 (97) 96 Room Air 11/29/17 14:31 127/79 11/29/17 14:29 56 1 98 11/29/17 14:29 57 1 11/29/17 14:28 57 0 11/29/17 14:28 56 0 97 11/29/17 14:26 120/78 11/29/17 14:25 36.9 96 Room Air 11/29/17 14:23 57 5 11/29/17 14:23 56 5 98 11/29/17 14:22 59 5 98 11/29/17 14:22 58 5 11/29/17 14:21 118/79 11/29/17 14:17 53 0 100 11/29/17 14:17 54 0 11/29/17 14:16 122/79 11/29/17 14:14 55 5 11/29/17 14:14 56 5 100 11/29/17 14:11 131/83 11/29/17 14:10 133/88 11/29/17 14:09 36.6 61 16 133/88 100 Mask 9 11/29/17 11:19 36.6 66 16 136/91 (106) 98 Room Air Notes Mental Status: alert / awake / arousable, participated in evaluation Pt Amnestic to Procedure: Yes Nausea / Vomiting: adequately controlled Pain: adequately controlled Airway Patency, RR, SpO2: stable & adequate BP & HR: stable & adequate Hydration State: stable & adequate Anesthetic Complications: no major complications apparent
[2017-11-29 14:54] VITALS: BP 124/81; PULSE 54; O2SAT 100
== END | disposition home or self-care (01) ==
LOC: X.SURG 10:55
PROVIDERS: ATTEND Urology
DX: N20.1 Calculus of ureter (principal); D68.51 Activated protein C resistance; M19.90 Unspecified osteoarthritis, unspecified site; Z68.35 Body mass index [BMI] 35.0-35.9, adult; E66.9 Obesity, unspecified; Z79.899 Other long term (current) drug therapy; Z88.2 Allergy status to sulfonamides; Z88.1 Allergy status to other antibiotic agents; Z84.1 Family history of disorders of kidney and ureter

== ENCOUNTER → 2017-12-17 | Outpatient (CLI) | payer OTHER ==
[~2017-12-17] MED LIST changes: -ATROPINE SULFATE 0.1 MG/ML 5ML SYR IV PRN; -CIPROFLOXACIN / D5W 400 MG IV SCH; -DEXAMETHASONE SOD INJ 4 MG/ML VIAL ONE; -EpHEDrine SULFATE INJ 50 MG/ML AMP IV PRN; -FENTANYL CITRATE INJ 50 MCG/1 ML 2 ML VIAL IV PRN; -FENTANYL CITRATE INJ 50 MCG/1 ML 2 ML VIAL ONE; -KETOROLAC TROMETHAMINE 30 MG/ML VIAL ONE; -LACTATED RINGER'S 1000ML 1,000 ML IV SCH; -LIDOCAINE HCL 2% 2 ML VIAL (20MG/ML) ONE; -MIDAZOLAM HCL 1 MG/ML 2ML VIAL ONE; -ONDANSETRON INJ 2 MG/ML 2 ML VIAL IV PRN; -ONDANSETRON INJ 2 MG/ML 2 ML VIAL ONE; -OXYCODONE/ACETAMINOPHEN 5-325 TAB PO PRN; -PROMETHAZINE HCL INJ 6.25 MG in SODIUM CHLORIDE 0.9% 50ML 50 ML IV PRN; -PROPOFOL IV EMULSION 10 MG/ML 20 ML VIAL IV ONE
--- NOTE | 2017-12-17 12:30 | DIAGNOSTIC IMAGING REPORT ---
KUB CLINICAL HISTORY: N20.0 [id number] COMPARISON STUDY: 11/29/2017 FINDINGS: 2 views are provided for interpretation. There is no pathologic bowel dilatation. There are no calcifications suspicious for urinary tract calculi. An IUD is identified. IMPRESSION: No urinary tract calculi identified. Electronically signed by: Floyd Faulkner M.D. 12/17/2017 12:29 PM Dictated Date/Time: 12/17/2017 12:28 PM
== END | disposition home or self-care (01) ==
LOC: C.RAD1850 12:02
PROVIDERS: ATTEND Urology
DX: N20.0 Calculus of kidney (principal)

== ENCOUNTER 2020-09-27 05:19 | Observation (INO) ==
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
[~2020-09-27 05:19] MED LIST changes: -LEVO1IUD2; +MISSING PHYSICIAN SIGNATURE ON ORDER SCH; -ONDA4TAB46 PO; -OXYC1TAB3 PO; -TAMS0.4C38 PO
[2020-09-27] MEDS ORDERED: FAMOTIDINE 20 MG TAB PO SCH (06:00)
[2020-09-27] MEDS ORDERED: ACETAMINOPHEN 500 MG TAB PO SCH (06:00)
[2020-09-27] MEDS ORDERED: BUPIVACAINE LIPOSOME/PF 266 MG, BUPIVACAINE/EPINEPHRINE 50 ML, SODIUM CHLORIDE 0.9% 30 ... INFIL SCH (06:00)
[2020-09-27] MEDS ORDERED: GABAPENTIN 600 MG DOSE PO SCH (06:00)
[2020-09-27] MEDS ORDERED: ceFAZolin 2000MG 2,000 MG/15 ML SYR IV SCH (06:00)
[2020-09-27] MEDS ORDERED: TRANEXAMIC ACID 1,000 MG **IV Intra-op IV SCH (06:00)
[2020-09-27] MEDS ORDERED: METOCLOPRAMIDE HCL 10 MG TABLET PO SCH (06:00)
[2020-09-27] MEDS ORDERED: LR 500ML BOLUS, THEN 15ML/HR IV SCH (06:00)
[2020-09-27] MEDS ORDERED: LR 60ML/HR IV SCH (06:00)
[2020-09-27] MEDS ORDERED: EPINEPHrine INJ 1 MG/ML AMP ONE ×2 (06:19→06:50)
[2020-09-27] MEDS ORDERED: BUPIVACAINE 0.5 % 5 MG/1 ML PF 10ML VIAL ONE (06:19)
[2020-09-27] MEDS ORDERED: ROPIVACAINE 0.5% 5 MG/ML 30 ML VIAL ONE (06:20)
[2020-09-27] MEDS ORDERED: MIDAZOLAM HCL 1 MG/ML 2ML VIAL ONE ×2 (06:38→07:40)
[2020-09-27] MEDS ORDERED: LIDOCAINE HCL 2% 2 ML VIAL/AMP(20MG/ML) INFIL ONE (06:38)
[2020-09-27] MEDS ORDERED: PROPOFOL IV EMULSION 10 MG/ML 20 ML VIAL IV ONE ×2 (06:38→08:10)
[2020-09-27] MEDS ORDERED: SODIUM CHLORIDE 0.9% PF 50 ML VIAL ONE (06:49)
[2020-09-27] MEDS ORDERED: BACITRACIN INJ 50,000 UNIT VIAL ONE (06:50)
[2020-09-27] MEDS ORDERED: BUPIVACAINE LIPOSOME 1.3% 266 MG/20 ML VIAL ONE (06:50)
[2020-09-27] MEDS ORDERED: BUPIVACAINE 0.25% 30 ML VIAL ONE (06:50)
--- NOTE | 2020-09-27 06:51 | History & Physical Bridge Note ---
Date of Service September 27, 2020 History & Physical Bridge Note I have examined the patient, reviewed the History & Physical and in the interval since the performance of the History & Physical I have noted the following changes of clinical significance: no changes noted
[2020-09-27] MEDS ORDERED: KETAMINE 50 MG/5 ML SYRINGE ONE (07:22)
[2020-09-27] MEDS ORDERED: MEPERIDINE HCL 25 MG/ML CARP/VIAL IV PRN (07:25)
[2020-09-27] MEDS ORDERED: ONDANSETRON INJ 2 MG/ML 2 ML VIAL IV PRN (07:25)
[2020-09-27] MEDS ORDERED: PHENYLEPHRINE 100MCG/ML 5ML SYR IV PRN (07:25)
[2020-09-27] MEDS ORDERED: ATROPINE SULFATE 0.1 MG/ML 10ML SYR IV PRN (07:25)
[2020-09-27] MEDS ORDERED: fentaNYL citrate 100 MCG/2 ML VIAL IV PRN (07:25)
[2020-09-27] MEDS ORDERED: HYDROmorphone INJ 1 MG/ML SYRINGE IV PRN (07:25)
[2020-09-27] MEDS ORDERED: LABETALOL HCL IV 5 MG/ML 20ML IV PRN (07:25)
[2020-09-27] MEDS ORDERED: ePHEDrine sulfate 50 MG/ML AMP IV PRN (07:25)
--- NOTE | 2020-09-27 09:00 | Operative Report ---
Post Operative Report Pre & Post Diagnosis Operation Date: 09/27/20 07:00 Pre-Op Diagnosis: Left Knee Advanced Degenerative Joint Disease Post-Op Diagnosis: Left Knee Advanced Degenerative Joint Disease I identified the patient and participated in the time-out.: Yes Procedure Operation Date: 09/27/20 07:00 Actual Procedures p Left Total Knee Arthroplasty(Left) - Efren Berg MD Surgeon Efren Berg MD Hospital Secretary MAYCO Mccarthy Estimated Blood Loss 50 Findings Consistent with Post-Op Diagnosis Operative findings were advanced left knee DJD. She had extensive grade 4 [id number] disease of the medial compartment. She had some spotty grade 4 changes elsewhere. She had a varus deformity to her knee with a moderate knee joint effusion. Osteophytes mostly in the medial compartment. Fluids 1300 cc. Specimens Left knee sent for pathology. Drains None. Anesthesia Type Spinal MAC Complications none Disposition Accompanied Patient To Recovery: No Disposition: Recovery Room Indications Patient is a 54-year-old fairly active female is had a long history of bilateral knee pain discomfort left side just a bit worse than the right. She been through extensive conservative treatment over the years which became less successful. There is really hindering her ability to get around and be active. X-rays show advanced bilateral knee DJD. She elected proceed with left total knee arthroplasty. Description of Procedure Operative implants consist of: 1 Biomet Vanguard size 65 left posterior stabilized femoral component. 2. Biomet size 71 tibial tray. 3. 10 mm posterior stabilized polyethylene insert. 4. 31 x 8 all polypatella. Patient was taken the operating identified and placed on the operating table supine position but all contact areas were properly padded. IV antibiotics tried by anesthesia team. A spinal anesthetic and abductor canal block had provided holding area. Weller catheter was placed in sterile fashion. A left factor was then placed in the left lower extremities and prepped draped in usual sterile fashion. The left leg was elevated and exsanguinated with use of an Esmarch and turn was placed at 300 mmHg. An anterior approach left knee was then performed to longitudinal incision centered over the patella. Sharp dissection was carried through subcutaneous tissue down the extensor mechanism. A medial parapatellar arthrotomy incision was made. Some subperiosteal dissection was carried out medially. The fat pad was resected from each patella tendon. Lateral patellofemoral ligament was released. Patella was subluxated laterally and the knee was flexed. The osteophytes were taken off the distal femur. The ACL and PCL were then released and the distal femur the tibia subluxated anteriorly. The external tibial alignment jig was then placed in the interface the tibia and adjusted 14 mm medially. Proximal tibial cut was made remove about 2 mm of bone from the most deficient aspect medial tibial plateau. Some osteophytes were taken off medial and posterior medially. Tibia sized to a size 71. Attention drawn the femur. The distal femur turned with a sharp drill. Intramedullary canal was suction. A left 5 degree valgus cutting guide was placed. The distal femoral cutting block was pinned in place. Distal femoral cut was made to take an additional 3 mm bone off distal femur. The femur was then sized to a size 65. The AP cutting block was pinned parallel to the epicondylar axis which was 4 degrees of external rotation. The anterior cut, anterior chamfer, posterior cut, posterior chamfer cuts were made. Box cutting guide was placed in just slight lateral and the box cut was made to the knee was flexed. The remnants of medial lateral menisci were excised. The osteophytes were taken off the posterior aspect the femur. A trial femoral component was placed. The tibial tray was pinned in maximum external rotation and the drill and stem punch were used to create defect in proximal tibia for the tibial tray. Knee was then trialed and the 10 mm insert fit most appropriately. Attention drawn the patella. The patella was cleaned of all soft tissues. Patella thickness measured 20 mm in thickness was cut down 13. Sized to a size 31 patella. The lug holes were drilled for 31 patella. The lateral osteophyte was removed. Patella button was placed. The knee was taken through range of motion patella tracked nicely with no thumbs test. Attention drawn to place the permanent components. All trial components were removed. A bone plug was placed in the distal femur limit blood loss. A double batch of Palacos G cement was mixed. Biomet Vanguard size 65 left posterior stabilized femoral component, size 71 tibial tray, a 10 mm posterior stabilized polyethylene insert, and a 31 x 8 all polypatella were then cemented in place. Knee was brought out into full extension until cement hardened. Final cement check was then performed. The pericapsular tissues were injected with a total of 100 cc of combination of 20 cc of Exparel, 30 cc normal saline, 50 cc of quarter percent Marcaine with epinephrine. Patient did receive 1 g tranexamic acid. The tourniquet was then let down for turn time 59 minutes. Hemostasis assured use electrocautery. The extensor mechanism closed with combination 1 PDS suture #1 Vicryl suture in a [id number] fashion. Extensor mechanism checked found to be intact with subcutaneous tissue then closed with 2 Dexon suture in a buried interrupted fashion skin was closed skin bo. Leg was then cleaned dried a sterile dressing composed Xeroform, 4 x 4's, sterile cast padding, Adithya bandage were a pplied. Patient then transferred to the recovery room in stable condition. Patient tolerated the procedure well and there were no complications. Deven Mccarthy, my physician pharmacy technician assistant, was present for the entire procedure. His assistance was essential and required for appropriate patient positioning, prepping and draping, surgical exposure, performing the technical details of the operation, placement the implants, closure of the wound, and placement of the sterile bandage. I attest to the content of the Intraoperative Record and any orders documented therein. Any exceptions are noted below.
--- NOTE | 2020-09-27 09:42 | XRay Report ---
XR knee LT 1 or 2V routine HISTORY: 54 years-old Female Surgical Post Op [knee total joint arthroplasty COMPARISON: Left knee radiographs 03/18/2016 TECHNIQUE: 2 views of the left knee FINDINGS: Left knee total joint arthroplasty and patella resurfacing with overlying anterior midline skin stapl es. Expected postsurgical soft tissue swelling and deep tissue air with surgical drainage catheter. N o acute fracture or unexpected opaque foreign body. IMPRESSION: Left knee total joint arthroplasty and patella resurfacing with expected postoperative ch anges. ACT 112: Negative or not required by law. The above report was generated using voice recognition software. It may contain grammatical, syntax o r spelling errors. Electronically signed by: Jose Robles M.D. 09/27/2020 9:41 AM
--- NOTE | 2020-09-27 09:59 | Anesthesiology Progress Note ---
Date of Service September 27, 2020 Anesthesia Post Procedure Vital Signs Vital Signs: Temp Pulse Pulse Resp BP Pulse Ox 09/27/20 09:40 62 16 121/77 96 09/27/20 09:30 36.3 C L 68 15 136/86 98 09/27/20 09:20 69 19 120/68 99 09/27/20 09:10 67 18 112/64 99 09/27/20 09:00 75 15 105/64 99 09/27/20 08:54 36.1 C L 83 16 98/57 L 97 09/27/20 05:58 36.7 C 82 20 136/89 96 Pain Intensity Left Knee: Pain Intensity: 2 Transfer of Care Handoff Completed per policy Notes Mental Status: alert / awake / arousable Patient Amnestic to Procedure: Yes Nausea / Vomiting: adequately controlled Pain: adequately controlled Airway Patency, RR, SpO2: stable & adequate BP & HR: stable & adequate Hydration State: stable & adequate Neuraxial Anesthesia: was administered and sensory block is resolving Anesthetic Complications: no major complications apparent and Pt Satisfied with anesthetic care
[2020-09-27] MEDS ORDERED: bisacodyL 10 MG SUPP PR PRN (10:10)
[2020-09-27] MEDS ORDERED: diphenhydrAMINE Capsule 25 MG CAP PO PRN (10:10)
[2020-09-27] MEDS ORDERED: NALOXONE HCL 0.4 MG/1 ML VIAL/CARP IV PRN (10:10)
[2020-09-27] MEDS ORDERED: HYDROmorphone INJ 0.5 MG/0.5 ML SYR IV PRN (10:10)
[2020-09-27] MEDS ORDERED: ALUMINUM/MAGNESIUM SUSP 30 ML UDC PO PRN (10:10)
[2020-09-27] MEDS ORDERED: MAGNESIUM HYDROXIDE SUSP 30 ML UDC PO PRN (10:10)
[2020-09-27] MEDS: SODIUM CHLORIDE 0.9% 1000ML 1,000 ML IV SCH ×2 (11:17→19:18)
[2020-09-27] MEDS: TRIAMTERENE/HCTZ 37.5/25MG CAP PO SCH (11:18)
[2020-09-27] MEDS: KETOROLAC 30 MG/ML VIAL IV SCH ×3 (11:19→22:36)
[2020-09-27] MEDS: MULTIVITAMIN TAB PO SCH (11:19)
[2020-09-27] MEDS: TAPENTADOL HCL ER 50 MG TABCR PO SCH ×2 (11:22→19:56)
[2020-09-27] MEDS: DOCUSATE SODIUM 100 MG CAP PO SCH ×2 (11:22→21:24)
[2020-09-27] MEDS: ACETAMINOPHEN 500 MG TAB PO SCH ×2 (13:42→21:24)
[2020-09-27] MEDS ORDERED: TRANEXAMIC ACID / 0.7% NACL 1,000 MG/100 ML BAG IV SCH (15:00)
[2020-09-27] MEDS: Scopolamine CHECK PATCH PLACEMENT SCH ×2 (15:42→23:23)
[2020-09-27] MEDS: ceFAZolin 2000MG 2,000 MG/15 ML SYR IV SCH ×2 (15:48→22:35)
[2020-09-27] MEDS: oxyCODONE HCL IR 5 MG TAB (IMMEDIATE RELEASE) PO PRN ×2 (15:48→18:20)
[2020-09-27] MEDS: FERROUS GLUCONATE 324 MG TAB PO SCH (16:00)
[2020-09-27] MEDS: ASCORBIC ACID 500 MG TAB PO SCH (16:00)
[2020-09-27] MEDS: ONDANSETRON INJ 2 MG/ML 2 ML VIAL IV PRN (19:56)
[2020-09-27] MEDS: SENNA 8.6 MG TAB PO SCH (21:24)
[2020-09-28] MEDS: oxyCODONE HCL IR 5 MG TAB (IMMEDIATE RELEASE) PO PRN ×3 (03:33→17:02)
[2020-09-28] MEDS: ONDANSETRON INJ 2 MG/ML 2 ML VIAL IV PRN ×3 (03:34→16:59)
[2020-09-28] MEDS: KETOROLAC 30 MG/ML VIAL IV SCH ×4 (05:27→23:21)
[2020-09-28] MEDS: ACETAMINOPHEN 500 MG TAB PO SCH ×3 (05:27→21:28)
[2020-09-28 07:16] LABS: Hematocrit (blood only) 35.2 % (37-47); Mean Corpuscular Hemoglobin 30.2 pg (25-34); Mean Corpuscular Hgb Conc 34.1 g/dL (32-36); Mean Corpuscular Volume 88.4 fL (80-100); Platelet Count 192 K/uL (130-400); RDW Coefficient of Variation 12.7 % (11.5-14.5); RDW Standard Deviation 41.1 fL (36.4-46.3); Red Blood Count 3.98 M/uL (4.2-5.4); White Blood Count 6.68 K/uL (4.8-10.8)
[2020-09-28] MEDS: Scopolamine CHECK PATCH PLACEMENT SCH ×3 (07:39→23:22)
[2020-09-28 07:43] LABS: BUN Creatinine Ratio 23.6 (10-20); Calcium 8.5 mg/dl (8.5-10.1); Creatinine Clr Calc Pharmacy 102.1 ml/min; Est GFR (African American) 99.2; Est GFR (Non-African American) 85.6; Potassium 3.8 mmol/L (3.5-5.1)
[2020-09-28] MEDS ORDERED: dexAMETHasone 4 MG TAB PO SCH (08:00)
[2020-09-28] MEDS: TAPENTADOL HCL ER 50 MG TABCR PO SCH ×2 (08:20→20:38)
--- NOTE | 2020-09-28 08:20 | Progress Notes ---
DATE: 09/28/2020 SUBJECTIVE: A 54-year-old white female postop day 1 from a left knee replacement. She had a pretty rough night pain hankins. Did not get a lot of sleep. No chest pain or shortness of breath, just knee pain. OBJECTIVE: VITAL SIGNS: Temperature 36.6. Vital signs stable. GENERAL: Shows a pleasant, middle-aged female. She is lying in bed. Does not look particularly uncomfortable this morning. LUNGS: Clear to auscultation. HEART: Has a regular rate and rhythm. ABDOMEN: Soft, nontender, nondistended. EXTREMITIES: Grossly neurovascularly intact except as follows. Examination of the left lower extremity reveals the leg to be well aligned. Dressing is clean, dry and intact. Not much in the way of swelling. No drainage. She can dorsiflex and plantarflex her foot appropriately. LABORATORY DATA: Hemoglobin 12.0. Hematocrit 35.2. Electrolytes are pending. ASSESSMENT: A 54-year-old white female with a history of a deep venous thrombosis and pulmonary embolism in the past postop day 1 from a left knee replacement. She is doing okay. Had a painful night. Seems a little bit better this morning. PLAN: 1. DVT prophylaxis including thigh-high TEDs, SCDs, and we will start Xarelto today. 2. PT/OT. She can weightbear as tolerated. Left total knee protocol. 3. Pain control, doing okay with current pain regimen. We will see how she does this morning. If not, we can change her meds around maybe try some Dilaudid. 4. Disposition: Plan to discharge to home with some home health once adequately recovered and medically stable. Her pain is not under control at this time.
[2020-09-28] MEDS: METOCLOPRAMIDE HCL INJ 5 MG/ML 2 ML VIAL IV PRN ×2 (09:06→20:38)
[2020-09-28] MEDS: TRIAMTERENE/HCTZ 37.5/25MG CAP PO SCH (12:38)
[2020-09-28] MEDS: FERROUS GLUCONATE 324 MG TAB PO SCH ×2 (12:38→17:03)
[2020-09-28] MEDS: ATORVASTATIN 20 MG TAB PO SCH (12:38)
[2020-09-28] MEDS: ASCORBIC ACID 500 MG TAB PO SCH ×2 (12:38→17:03)
[2020-09-28] MEDS: DOCUSATE SODIUM 100 MG CAP PO SCH ×2 (12:38→20:38)
[2020-09-28] MEDS: MULTIVITAMIN TAB PO SCH (12:39)
[2020-09-28] MEDS: RIVAROXABAN 10 MG TABLET PO SCH (12:39)
[2020-09-28] MEDS: SENNA 8.6 MG TAB PO SCH (20:38)
[2020-09-29] MEDS: KETOROLAC 30 MG/ML VIAL IV SCH (05:38)
[2020-09-29] MEDS: ACETAMINOPHEN 500 MG TAB PO SCH ×2 (05:38→13:39)
[2020-09-29] MEDS: Scopolamine CHECK PATCH PLACEMENT SCH (07:09)
[2020-09-29] MEDS: ONDANSETRON INJ 2 MG/ML 2 ML VIAL IV PRN (07:09)
[2020-09-29] MEDS: FERROUS GLUCONATE 324 MG TAB PO SCH (08:28)
[2020-09-29] MEDS: ASCORBIC ACID 500 MG TAB PO SCH (08:28)
[2020-09-29] MEDS: DOCUSATE SODIUM 100 MG CAP PO SCH (08:29)
[2020-09-29] MEDS: ATORVASTATIN 20 MG TAB PO SCH (08:29)
[2020-09-29] MEDS: RIVAROXABAN 10 MG TABLET PO SCH (08:30)
[2020-09-29] MEDS: MULTIVITAMIN TAB PO SCH (08:30)
[2020-09-29] MEDS: TRIAMTERENE/HCTZ 37.5/25MG CAP PO SCH (08:30)
[2020-09-29] MEDS: TAPENTADOL HCL ER 50 MG TABCR PO SCH (08:32)
[2020-09-29] MEDS: oxyCODONE HCL IR 5 MG TAB (IMMEDIATE RELEASE) PO PRN (13:42)
--- NOTE | 2020-09-29 15:46 | Progress Notes ---
DATE: 09/29/2020 SUBJECTIVE: A 54-year-old white female postop day 2 from a left knee replacement. She is doing much better today. Pain has improved significantly. She is more comfortable. Therapy has gone better. No chest pain or shortness of breath. Not feeling dizzy or lightheaded. OBJECTIVE: VITAL SIGNS: Temperature 36.7. Vital signs are stable. GENERAL: Shows a pleasant, middle-aged female. She is sitting up in bed, looks more comfortable today. EXTREMITIES: Examination of the left leg reveals the dressing to be clean, dry and intact. Calf is soft and supple. No drainage. She can dorsiflex and plantarflex her foot appropriately. ASSESSMENT: A 54-year-old white female postoperative day 2 from a left knee replacement, doing reasonably well. Pain seems to be much better controlled. Therapy went okay. PLAN: 1. DVT prophylaxis including thigh-high TEDs, SCDs, and Xarelto due to her history of thrombosis in the past. 2. PT/OT. Weight bear as tolerated. Left total knee protocol. 3. Pain control, doing okay with current pain regimen. 4. Disposition: Plan to discharge to home with some home health hopefully later today if therapy goes okay and her pain is controlled.
--- NOTE | 2020-10-02 09:41 | Discharge Summary ---
Date of Service October 02, 2020 Discharge Data Consultations 09/27/20 10:10 Consult Case Management - Discharge Planning Routine Procedures Performed Operation Date: 09/27/20 07:00 Actual Procedures p Left Total Knee Arthroplasty(Left) - Efren Berg MD Hospital Course (1) Status post total left knee replacement: This patient is a 54 year old female admitted on 09/27/20 and underwent total knee arthroplasty. She tolerated the procedure well and there were no complications. Transferred to the PACU post op and later to the orthopedic floor for further care. She was given ancef for antibiotic prophylaxis. She was also given BONILLA stockings, SCDs, and xarelto for DVT prophylaxis. Hemoglobin, hemato crit, and vital signs were monitored during her hospital stay and remained stable. Did not require any blood transfusions. There were no complications during her hospital stay. By post op day #2 the patient was tolerating a regular diet, pain was reasonably controlled with oral pain medicine, and she was participating in physical therapy. On post op day #2 the patient was discharged home and set up with home health care. She was given printed discharge instructions including prescriptions for extra strength tylenol, xarelto, zofran, and oxycodone. Continue physical therapy, weight bearing as tolerated. Continue BONILLA stockings. Follow up approximately 2 weeks post op or sooner if there are problems or concerns. Coding Level of Care Code None Diagnoses Status post total left knee replacement Z96.652
== END 2020-09-29 15:45 | disposition home health service (06) ==
LOC: ASU 05:19 → 3E 05:19

== ENCOUNTER 2021-04-04 07:54 | Observation (INO) ==
--- NOTE | 2021-03-30 14:09 | History and Physical Report ---
DATE OF ADMISSION: 04/04/2021 CHIEF COMPLAINT: Persistent and progressive right knee pain and discomfort. HISTORY OF PRESENT ILLNESS: The patient is a 55-year-old female who has been a long-term patient of mine. She has a long history of knee problems treated conservatively over the years. This became le ss successful when she had her left knee replaced back in September. She struggled for the first do h, but has done well after that. Very happy with her left knee. She is now limited by right knee pa in and discomfort. She has got global pain. The more she is up and on it, the more it hurts. She h as a limited walking tolerance due to her pain. She has difficulty going up and down steps. She wou ld like to have her right knee replaced. Of note, the patient has a history of a DVT and PE 10 years ago after an accident. She does have a h eterozygous factor V Leiden abnormality. She did see hematology before last knee replacement and the y had recommended routine anticoagulation. We will plan on using Xarelto for 30 days. PAST MEDICAL HISTORY: Significant for, 1. DVT/PE 10 years ago and heterozygous for factor V Leiden abnormality. 2. Elevated cholesterol. 3. Obesity. 4. Kidney stones. PAST SURGICAL HISTORY: Includes, 1. Left knee replacement done on 09/27/2020. 2. Breast lump excision. ALLERGIES: None. CURRENT MEDICATIONS: 1. Voltaren twice a day. 2. Triamterene/hydrochlorothiazide once a day. 3. Atorvastatin once a day. 4. Trazodone 50 mg a day. SOCIAL HISTORY: A 55-year-old female. She does not smoke. She is . Fairly active. FAMILY HISTORY: Noncontributory. REVIEW OF SYSTEMS: Significant for heterozygous factor V Leiden abnormality. She has this one DVT, PE 10 years ago, no subsequent episodes. No diabetes. No chest pain or shortness of breath. No his tory of bleeding problems. PHYSICAL EXAMINATION: GENERAL: Shows a pleasant middle-aged female. Looks to be in pretty good health. HEENT: Benign. NECK: Supple. No lymphadenopathy. LUNGS: Clear to auscultation. HEART: Regular rate and rhythm. ABDOMEN: Soft, nontender, nondistended. EXTREMITIES: Grossly neurovascularly intact except as follows: Examination of the right knee reveal s the patient walks with a bit of a limp. She has got a moderate to large soft tissue envelope. Alex rly neutral alignment to the knee. Range of motion about 5 degrees short of full extension to 120 de grees of flexion. Small knee effusion. No instability. No pain with hip motion. Examination of the left knee reveals a well-healed incision. Minimal swelling. Range of motion is 0 to 120. X-RAYS: X-rays of the right knee are reviewed. It shows advanced right knee DJD. She has complete loss of her medial joint space. She has got osteophytes off the medial femoral condyle and medial ti bial plateau. She has got osteophytes laterally as well. ASSESSMENT: A 55-year-old white female status post a left knee replacement 6 months ago with advance d right knee degenerative joint disease. She has failed conservative treatment and would like to hav e her right knee replaced. She does have a history of a deep venous thrombosis and pulmonary embolis m and heterozygous for factor V Leiden abnormality, and we will plan on using Xarelto postoperatively for 30 days. PLAN: We will proceed with right knee replacement. The risks and benefits of right total knee repla cement were explained to the patient including but not limited to DVT, PE, , infection, neurolog ical injury, vascular injury, bleeding problem, pain, limited range of motion, stiffness, failure to relieve her symptoms, incomplete relief of symptoms, need for further surgery in the future, fracture , leg length inequality, nerve palsy, dislocation, blood clots, pulmonary embolism, etc. The patient understands and desires to proceed. Informed consent was obtained. SHE APPARENTLY DOES HAVE A CHLORHEXIDINE ALLERGY, so we will likely use DuraPrep. She knows to stop her Voltaren 10 days preop. We will use Xarelto for 30 days for DVT prophylaxis postop. Job ID: [id number]
--- NOTE | 2021-03-31 12:54 | Anesthesiology Consultation ---
Date of Service March 31, 2021 Assessment & Plan Chart Review Chart Review: Acceptable Risk for Surgery and Patient NOT seen in Pre Admission Testing History Surgery Operation Date: 04/04/21 07:00 Proposed Procedures p Right Total Knee Arthroplasty - Efren Berg MD Height/Weight Height: 5 ft 6 in Weight: 102.512 kg Allergies Allergy/AdvReac Type Severity Reaction Status Date / Time chlorhexidine Allergy Intermediate RED ITCHY Verified 03/23/21 16:29 SKIN adhesive Allergy Mild REDNESS Verified 03/23/21 16:04 WITH TAPE Sulfa (Sulfonamide Allergy Unknown Unknown Verified 03/23/21 16:04 Antibiotics) doxycycline AdvReac Mild ABDOMINAL Verified 03/23/21 16:04 PAIN, NAUSEA Medications Home Medications Medication Instructions Recorded Confirmed Last Taken diclofenac sodium 75 mg 75 mg PO BID #180 tab 11/08/20 03/23/21 Unknown tablet,delayed release amoxicillin 500 mg tablet 2,000 mg PO ONCE #4 tab 11/14/20 03/23/21 Unknown atorvastatin 20 mg tablet 20 mg PO QAM #30 tab 02/27/21 03/23/21 Unknown trazodone 50 mg tablet 50 mg PO HS 03/23/21 03/23/21 Unknown triamterene 37.5 1 cap PO QAM 03/23/21 03/23/21 Unknown mg-hydrochlorothiazide 25 mg capsule Past Medical History Medical History Arthritis Factor 5 Leiden mutation, heterozygous Herpes simplex type 1 infection HX History of COVID-19 diagnosed 07/20/20 @ [facility] only symptom was "dry sinus passage"-RECOVERED AT HOME History of kidney stones History of pulmonary embolism 8 YEARS AGO - FOLLOWING INJURY/TRAVEL, ALSO DX W/ FACTOR V LEIDEN - FINISHED AC THERAPY History of use of contraceptive intrauterine device (IUD) Hx of deep venous thrombosis 8 YRS AGO FOLLOWING INJURY Hyperlipemia Obesity Right knee DJD Spinal stenosis Past Family History Family History Unknown Common migraine without aura Heart disease Pure hypercholesterolemia Hypertension Heart murmur Brother Kidney stones Other No family history of adverse response to anesthesia Past Surgical History Surgical History H/O LEEP History of cataract surgery LEFT History of colonoscopy AGE 51 History of dilation and curettage History of lithotripsy History of lumpectomy of left breast History of tooth extraction IMPLANTS History of total knee replacement LEFT 09/27/2020 History of vein stripping [place] teeth extracted Social History Smoking Status: Never smoker Do You Dip or Chew Tobacco: No Hx Alcohol Use: Yes Alcohol type: wine alcohol intake frequency: a few times a month Hx Substance Use: Yes substance use type: prescription drug
[~2021-04-04 07:54] MED LIST changes: +ACETAMINOPHEN 500 MG TAB PO SCH; +BUPIVACAINE 0.5 % 5 MG/1 ML PF 10ML VIAL ONE; +BUPIVACAINE LIPOSOME/PF 266 MG, BUPIVACAINE/EPINEPHRINE 50 ML, SODIUM CHLORIDE 0.9% 30 ... INFIL SCH; +EPINEPHrine INJ 1 MG/ML AMP ONE; +FAMOTIDINE 20 MG TAB PO SCH; +GABAPENTIN 600 MG DOSE PO SCH; +LR 60ML/HR IV SCH; -MISSING PHYSICIAN SIGNATURE ON ORDER SCH; +ROPIVACAINE 0.5% 5 MG/ML 30 ML VIAL ONE; +Scopolamine 1 MG TDSY TD SCH; +TRANEXAMIC ACID 1,000 MG **IV Intra-op IV SCH; +ceFAZolin 2000MG 2,000 MG/15 ML SYR IV SCH
[2021-04-04] MEDS: LR 500ML BOLUS, THEN 15ML/HR IV SCH ×2 (08:40→09:01)
--- NOTE | 2021-04-04 08:42 | History & Physical Bridge Note ---
Date of Service April 04, 2021 History & Physical Bridge Note I have examined the patient, reviewed the History & Physical and in the interval since the performance of the History & Physical I have noted the following changes of clinical significance: no changes noted
[2021-04-04] MEDS ORDERED: MIDAZOLAM HCL 1 MG/ML 2ML VIAL ONE ×2 (08:54→10:42)
[2021-04-04] MEDS ORDERED: fentaNYL citrate 100 MCG/2 ML VIAL ONE (08:54)
[2021-04-04] MEDS ORDERED: EPINEPHrine INJ 1 MG/ML AMP ONE (10:18)
[2021-04-04] MEDS ORDERED: BUPIVACAINE 0.25% 30 ML VIAL ONE ×2 (10:18→10:22)
[2021-04-04] MEDS ORDERED: SODIUM CHLORIDE 0.9% INJ 10 ML VIAL ONE (10:18)
[2021-04-04] MEDS ORDERED: BUPIVACAINE LIPOSOME 1.3% 266 MG/20 ML VIAL ONE (10:18)
[2021-04-04] MEDS ORDERED: PROPOFOL IV EMULSION 10 MG/ML 20 ML VIAL IV ONE (10:42)
[2021-04-04] MEDS ORDERED: PHENYLEPHRINE 100MCG/ML 5ML SYR ONE (10:56)
[2021-04-04] MEDS ORDERED: ATROPINE SULFATE 0.1 MG/ML 10ML SYR IV PRN (11:39)
[2021-04-04] MEDS ORDERED: ePHEDrine sulfate 50 MG/ML AMP IV PRN (11:39)
--- NOTE | 2021-04-04 12:30 | Operative Report ---
Post Operative Report Pre & Post Diagnosis Operation Date: 04/04/21 10:10 Pre-Op Diagnosis: Advanced Right Knee Degenerative Joint Disease Post-Op Diagnosis: Advanced Right Knee Degenerative Joint Disease I identified the patient and participated in the time-out.: Yes Procedure Operation Date: 04/04/21 10:10 Actual Procedures p Right Total Knee Arthroplasty(Right) - Efren Berg MD Surgeon Efren Berg MD [employer] Manager Deven Mccarthy PA-C Estimated Blood Loss 50 Findings Consistent with Post-Op Diagnosis Operative findings were advanced right knee DJD. Extensive grade 4 [id number] disease of the medial compartment. She had osteophytes primarily medially. She had a varus deformity to the knee with a slight flexion contracture. Moderate- sized knee effusion. Fairly minimal disease in her lateral compartment. Fluids 900 cc Specimens Right knee sent for pathology. Anesthesia Type Spinal MAC Complications none Disposition Accompanied Patient To Recovery: No Indications Patient is a 55-year-old female said a long history of bilateral knee pain discomfort. She been through extensive conservative treatment of the past 10 years. This became less successful over time. She underwent a left knee replacement and is done extremely well from this. She continued be limited by right knee pain. She elected proceed with surgical treatment. Description of Procedure Operative implants consist of: 1. Biomet Vanguard size 65 right posterior stabilized femoral component. 2. Biomet size 71 tibial tray. 3. 10 mm posterior stabilized polyethylene insert. 4. 31 x 8 all polypatella. The patient was taken to the operating room, identified, and placed on the operating table supine position but all contractors were properly padded. IV antibiotics tried by anesthesia team. Spinal anesthetic and abductor canal block had provided in the holding area. Weller catheter was placed in sterile fashion. Right thigh tip was then placed in the right lower extremities and prepped and draped in usual sterile fashion. The right leg was elevated exsanguinated with use of an Esmarch and tourniquet placed at 300 mmHg. An anterior approach to the right knee was then performed through longitudinal incision centered over the patella. Sharp dissection was carried through subcutaneous tissue down the extensor mechanism. A medial parapatellar arthrotomy incision was made. Some subperiosteal dissection was carried out medially. The fat pad was resected from each patella tendon. Lateral patellofemoral ligament was released. Patella subluxated laterally knee was flexed. The osteophyte taken off the distal femur. The ACL and PCL were then released in the distal femur and the tibia subluxated anteriorly. The external tibial alignment jig was then placed in the anterior face of the tibia and adjusted 14 mm medially. Proximal tibial cut was made remove about 2 mm of bone from the most deficient aspect medial tibial plateau. The tibia was then sized to a size 71. Some osteophytes taken off medially. Attention drawn the femur. The distal femur examined the sharp drop with intramedullary canal was suction. A right 5 degree valgus cutting guide was placed. The distal femoral cutting block was pinned in place. Distal femoral cut was made to take an additional 3 mm of bone off distal femur. The femur was then sized to a size 65. The AP cutting block was pinned parallel to the epicondylar axis which was 3 degrees of external rotation. The anterior cut, anterior chamfer, posterior cut, posterior chamfer cuts were made. The box cutting guide was placed in the just slight lateral box cut was made. The knee was flexed. The remnants of the medial and lateral menisci were excised. The osteophyte taken off the posterior aspect of femur. A trial femoral component was placed. The tibial tray was pinned in maximum external rotation and the drill and stem punch used to create defect in proximal tibia for the tibial tray. Knee was then trialed and the 10 mm insert fit most appropriately. Attention drawn the patella. The patella was cleaned of all soft tissues. Patella thickness measured 18 mm and cut down to 13. Was sized to a size 31 patella. The lug holes were drilled for the 31 patella. The lateral osteophyte was removed. Patella button was placed. Knee was taken through range of motion patella tracked nicely with no thumbs test. Attention drawn to placing permanent components. Nupathe all trial components were removed. Bone plug was placed in the distal femur limit blood loss. Double batch Palacos G cement was mixed. Biomet Vanguard size 65 right posterior stabilized femoral component, size 71 tibial tray, 10 mm posterior stabilized polyethylene insert, and a 31 x 8 all polypatella were then cemented in place. The knee was brought out into full extension until cement hardened. Final cement check was then performed. Pericapsular tissues were injected with total 100 cc of combination of 20 cc of Exparel, 30 cc normal saline, 50 cc of quarter percent Marcaine with epinephrine. Patient did receive 1 g tranexamic acid but the tourniquet was then let down for final turn time 53 minutes. Hemostasis assured use electrocautery to the extensor mechanism closed with combination 1 PDS suture #1 Vicryl suture in [id number] fashion. Extensor mechanism checked found to be intact the subcutaneous tissue then closed with 2 Dexon suture in a buried interrupted fashion skin was closed skin bo. Leg was then cleaned and dried and a sterile dressing both Xeroform, 4 x 4's, sterile cast padding, Adithya bandage were applied. Patient then transferred to the recovery room in stable condition. Patient tolerated procedure well and there were no complications. Deven Mccarthy, my physician conservation assistant, was present for the entire procedure. His assistance was essential and required for appropriate patient positioning, prepping and draping, surgical exposure, performing the technical details of the operation, placement the implants, closure of the wound, and placement of the sterile bandage. I attest to the content of the Intraoperative Record and any orders documented therein. Any exceptions are noted below.
--- NOTE | 2021-04-04 13:00 | XRay Report ---
RIGHT KNEE 2 VIEWS History: Right total knee arthroplasty. Degenerative arthritis. Postop. FINDINGS: The patient is status post a right total knee arthroplasty. The hardware is intact. No frac ture or dislocation. Skin bo are in place. IMPRESSION: Right total knee arthroplasty. No evidence for hardware complication. ACT 112: Negative or not required by law. Electronically signed by: Daryl Wright M.D. 04/04/2021 12:59 PM
--- NOTE | 2021-04-04 13:12 | Anesthesiology Progress Note ---
Date of Service April 04, 2021 Anesthesia Post Procedure Vital Signs Vital Signs: Temp Pulse Pulse Resp BP Pulse Ox 04/04/21 12:50 65 12 115/72 97 04/04/21 12:40 71 12 107/68 95 04/04/21 12:30 69 14 98/60 L 98 04/04/21 12:22 36 C L 82 12 95/54 L 97 04/04/21 08:42 36.8 C 75 20 143/91 H 98 Transfer of Care Handoff Completed per policy Notes Mental Status: alert / awake / arousable Patient Amnestic to Procedure: Yes Nausea / Vomiting: adequately controlled Pain: adequately controlled Airway Patency, RR, SpO2: stable & adequate BP & HR: stable & adequate Hydration State: stable & adequate Anesthetic Complications: no major complications apparent
[2021-04-04] MEDS ORDERED: NALOXONE HCL 0.4 MG/1 ML VIAL/CARP IV PRN (13:39)
[2021-04-04] MEDS ORDERED: bisacodyL 10 MG SUPP PR PRN (13:39)
[2021-04-04] MEDS ORDERED: diphenhydrAMINE Capsule 25 MG CAP PO PRN (13:39)
[2021-04-04] MEDS ORDERED: ALUMINUM/MAGNESIUM SUSP 30 ML UDC PO PRN (13:39)
[2021-04-04] MEDS ORDERED: METOCLOPRAMIDE HCL INJ 5 MG/ML 2 ML VIAL IV PRN (13:39)
[2021-04-04] MEDS ORDERED: ONDANSETRON INJ 2 MG/ML 2 ML VIAL IV PRN (13:39)
[2021-04-04] MEDS ORDERED: MAGNESIUM HYDROXIDE SUSP 30 ML UDC PO PRN (13:39)
[2021-04-04] MEDS: SODIUM CHLORIDE 0.9% 1000ML 1,000 ML IV SCH ×2 (14:00→20:40)
[2021-04-04] MEDS: Scopolamine CHECK PATCH PLACEMENT SCH ×2 (15:04→23:56)
[2021-04-04] MEDS: KETOROLAC 30 MG/ML VIAL IV SCH ×2 (15:04→20:41)
[2021-04-04] MEDS: ACETAMINOPHEN 500 MG TAB PO SCH ×2 (15:04→22:17)
[2021-04-04] MEDS: ASCORBIC ACID 500 MG TAB PO SCH (17:52)
[2021-04-04] MEDS: ceFAZolin 2000MG 2,000 MG/15 ML SYR IV SCH (18:30)
[2021-04-04] MEDS: HYDROmorphone INJ 0.5 MG/0.5 ML SYR IV PRN (18:40)
[2021-04-04] MEDS: TAPENTADOL HCL ER 50 MG TABCR PO SCH (20:40)
[2021-04-04] MEDS: SENNA 8.6 MG TAB PO SCH (20:41)
[2021-04-04] MEDS: DOCUSATE SODIUM 100 MG CAP PO SCH (20:42)
[2021-04-04] MEDS: traZODone HCL 50 MG TAB PO SCH (22:17)
[2021-04-05] MEDS: KETOROLAC 30 MG/ML VIAL IV SCH ×2 (03:21→11:09)
[2021-04-05] MEDS: ceFAZolin 2000MG 2,000 MG/15 ML SYR IV SCH (03:21)
[2021-04-05 06:06] LABS: Hematocrit (blood only) 37.3 % (37-47); Hemoglobin 12.3 g/dL (12.0-16.0); Mean Corpuscular Hemoglobin 29.1 pg (25-34); Mean Corpuscular Volume 88.4 fL (80-100); Mean Platelet Volume 8.9 fL (7.4-10.4); Platelet Count 193 K/uL (130-400); RDW Coefficient of Variation 12.8 % (11.5-14.5); RDW Standard Deviation 41.2 fL (36.4-46.3); Red Blood Count 4.22 M/uL (4.2-5.4); White Blood Count 7.35 K/uL (4.8-10.8)
[2021-04-05] MEDS: ACETAMINOPHEN 500 MG TAB PO SCH ×3 (06:11→21:21)
[2021-04-05 06:38] LABS: BUN Creatinine Ratio 16.7 (10-20); Calcium 8.4 mg/dl (8.5-10.1); Creatinine Clr Calc Pharmacy 104.3 ml/min; Est GFR (African American) 103.3 ml/min; Est GFR (Non-African American) 89.1 ml/min; Potassium 3.8 mmol/L (3.5-5.1)
[2021-04-05] MEDS: SODIUM CHLORIDE 0.9% 1000ML 1,000 ML IV SCH (07:16)
[2021-04-05] MEDS ORDERED: dexAMETHasone 10 MG in SYRINGE 0 ML IV SCH (08:00)
[2021-04-05] MEDS: Scopolamine CHECK PATCH PLACEMENT SCH ×3 (08:44→23:08)
[2021-04-05] MEDS: MULTIVITAMIN TAB PO SCH (09:21)
[2021-04-05] MEDS: ATORVASTATIN 20 MG TAB PO SCH (09:22)
[2021-04-05] MEDS: DOCUSATE SODIUM 100 MG CAP PO SCH ×2 (09:22→21:22)
[2021-04-05] MEDS: RIVAROXABAN 10 MG TABLET PO SCH (09:23)
[2021-04-05] MEDS: ASCORBIC ACID 500 MG TAB PO SCH ×2 (09:23→17:00)
[2021-04-05] MEDS: POLYETHYLENE (MIRALAX) 17 GM PACK PO SCH (09:24)
[2021-04-05] MEDS: HYDROmorphone HCL 2 MG TAB PO PRN ×3 (09:24→23:04)
[2021-04-05] MEDS: TRIAMTERENE/HCTZ 37.5/25MG CAP PO SCH (09:29)
[2021-04-05] MEDS: TAPENTADOL HCL ER 50 MG TABCR PO SCH ×2 (11:08→21:21)
--- NOTE | 2021-04-05 14:45 | Progress Notes ---
DATE OF NOTE: 04/05/2021. SUBJECTIVE: A 55-year-old female postoperative day 1 from right knee replacement. She is doing pret ty well. Says things are going much better than her other knee previously. Pain is controlled. No chest pain or shortness of breath. Not feeling dizzy or lightheaded. OBJECTIVE: VITAL SIGNS: Temperature is 36.7. Vital signs stable. GENERAL: Shows a pleasant middle-aged female. Sitting on bed, looks comfortable. LUNGS: Clear to auscultation. HEART: Regular rate and rhythm. ABDOMEN: Soft, nontender, nondistended. EXTREMITIES: Grossly neurovascularly intact except as follows. Examination of the right leg reveals the dressing to be clean, dry and intact. She can dorsiflex and plantarflex her foot appropriately. She is neurologically intact. LABORATORY DATA: Hemoglobin 12.3. Hematocrit 37.3. Electrolytes are stable. ASSESSMENT: A 55-year-old white female postoperative day 1 from right knee replacement, doing pretty well. Pain is controlled. She is neurologically intact. PLAN: 1. DVT prophylaxis include thigh-high TEDs, SCDs, and starting Xarelto today for a 30-day course. 2. PT, OT, weightbear as tolerated. Right total knee protocol. 3. Pain control, doing okay with current pain regimen. 4. Disposition: Plan to discharge to home. She is going to go to a friend's house and do outpatien t therapy, I believe. Job ID: [id number]
[2021-04-05] MEDS: traZODone HCL 50 MG TAB PO SCH (21:21)
[2021-04-05] MEDS: SENNA 8.6 MG TAB PO SCH (21:22)
[2021-04-06] MEDS: HYDROmorphone HCL 2 MG TAB PO PRN ×2 (06:23→17:03)
[2021-04-06] MEDS: ACETAMINOPHEN 500 MG TAB PO SCH ×2 (06:23→14:15)
[2021-04-06] MEDS: HYDROmorphone INJ 0.5 MG/0.5 ML SYR IV PRN (08:02)
[2021-04-06] MEDS: DOCUSATE SODIUM 100 MG CAP PO SCH (08:13)
[2021-04-06] MEDS: ASCORBIC ACID 500 MG TAB PO SCH (08:13)
[2021-04-06] MEDS: TRIAMTERENE/HCTZ 37.5/25MG CAP PO SCH (08:14)
[2021-04-06] MEDS: MULTIVITAMIN TAB PO SCH (08:14)
[2021-04-06] MEDS: ATORVASTATIN 20 MG TAB PO SCH (08:14)
[2021-04-06] MEDS: RIVAROXABAN 10 MG TABLET PO SCH (08:14)
[2021-04-06] MEDS: POLYETHYLENE (MIRALAX) 17 GM PACK PO SCH (08:14)
[2021-04-06] MEDS: Scopolamine CHECK PATCH PLACEMENT SCH ×2 (08:15→17:17)
--- NOTE | 2021-04-06 08:50 | Progress Notes ---
DATE OF NOTE: 04/06/2021. SUBJECTIVE: A 55-year-old white female postop day 2 from a right knee replacement. She is doing pre tty well. Having a little bit more pain this morning. Therapy went pretty well. No chest pain or s hortness of breath. Not feeling dizzy or lightheaded. Doing okay with the pain pills. OBJECTIVE: VITAL SIGNS: Temperature 36.8. Vital signs stable. GENERAL: Physical examination shows a pleasant middle-aged female. Sitting up on bed, and looks pre tty comfortable this morning. EXTREMITIES: Examination of the right leg reveals the leg to be well aligned. Dressings in place. A little bit of bloody drainage over the dressing. The calf is soft and supple. She can dorsiflex an d plantarflex her foot appropriately. ASSESSMENT: A 55-year-old white female postoperative day 2 from right knee replacement, doing pretty well. Pain is reasonably well controlled. She is neurologically intact. PLAN: 1. DVT prophylaxis include thigh-high TEDs, SCDs, and Xarelto as she has factor V Leiden abnormality with a history of a DVT in the past. 2. PT, OT, weightbear as tolerated. Right total knee protocol. 3. Pain control, doing well with current pain regimen. 4. Disposition: Plan to discharge to home. She is going to do outpatient therapy. Job ID: [id number]
[2021-04-06] MEDS: TAPENTADOL HCL ER 50 MG TABCR PO SCH (09:57)
--- NOTE | 2021-04-07 12:00 | Discharge Summary ---
Date of Service April 07, 2021 Discharge Data Procedures Performed Operation Date: 04/04/21 10:10 Actual Procedures p Right Total Knee Arthroplasty(Right) - Efren Berg MD Hospital Course (1) Status post total right knee replacement: This is a 55 year old patient admitted on 04/04/21 and underwent total knee arthroplasty. She tolerated the procedure well and there were no complications. Transferred to the PACU post op and later to the orthopedic floor for further care. She was given ancef for antibiotic prophylaxis. She was also given BONILLA stockings, SCDs, and xarelto for DVT prophylaxis. Hemoglobin, hematocrit, and vital signs were monitored during her hospital stay and remained stable. Did not require any blood transfusions. There were no complications during her hospital stay. By post op day #2 the patient was tolerating a regular diet, pain was reasonably controlled with oral pain medicine, and she was participating in physical therapy. On post op day #2 the patient was discharged home and set up with home health care. She was given printed discharge instructions including prescriptions for extra strength tylenol, dilaudid, xarelto, zofran, and mi ralax. Continue physical therapy, weight bearing as tolerated. Continue BONILLA stockings. Follow up approximately 2 weeks post op or sooner if there are problems or concerns. Coding Level of Care Code None Diagnoses Status post total right knee replacement Z96.651
== END 2021-04-06 17:33 | disposition home health service (06) ==
LOC: 3E 07:54 → ASU 07:54
DX: Z86.711 Personal history of pulmonary embolism; D68.51 Activated protein C resistance; E78.00 Pure hypercholesterolemia, unspecified; Z20.822 Contact with and (suspected) exposure to COVID-19; E66.9 Obesity, unspecified; Z96.652 Presence of left artificial knee joint; Z88.1 Allergy status to other antibiotic agents; Z79.899 Other long term (current) drug therapy; Z88.8 Allergy status to other drugs, medicaments and biological substances; Z86.16 Personal history of COVID-19; E78.5 Hyperlipidemia, unspecified; M17.11 Unilateral primary osteoarthritis, right knee; Z68.38 Body mass index [BMI] 38.0-38.9, adult; Z86.718 Personal history of other venous thrombosis and embolism; Z88.2 Allergy status to sulfonamides